=== PATIENT | male | born 1960 | race Caucasian/White ===

== ENCOUNTER 2018-12-09 08:17 | Day surgery (SDC) | payer BC | END 2018-12-09 10:35 | disposition home or self-care (01) | LOC: FASU-ENDO 08:17 ==

== ENCOUNTER 2020-09-06 07:53 | Day surgery (SDC) | payer BC ==
[2020-09-04 15:21] VITALS: BMI 34.4
[2020-09-06] MEDS ORDERED: LIDOCAINE HCL/PF 2% SDV 5ML VIAL ONE (08:28)
[2020-09-06] MEDS ORDERED: PROPOFOL 20 ML ONE ×3 (08:28)
[2020-09-06 09:18] VITALS: PULSE 66; TEMP 97.8
[2020-09-06 09:50] VITALS: BP 135/84
== END 2020-09-06 09:51 | disposition home or self-care (01) ==
LOC: FASU-ENDO 07:53
PROVIDERS: ATTEND Internal Medicine Gastroenterology
PROC: 0DBC8ZX Excision of Ileocecal Valve, Via Natural or Artificial Opening Endoscopic, Diagnostic (ICD-10-PCS; 2020-09-06)
PROC: 0DB78ZX Excision of Stomach, Pylorus, Via Natural or Artificial Opening Endoscopic, Diagnostic (ICD-10-PCS; 2020-09-06)
PROC: 0DBL8ZX Excision of Transverse Colon, Via Natural or Artificial Opening Endoscopic, Diagnostic (ICD-10-PCS; principal; 2020-09-06 08:30)
DX: Z12.11 Encounter for screening for malignant neoplasm of colon (principal); D12.3 Benign neoplasm of transverse colon; D12.0 Benign neoplasm of cecum; R10.12 Left upper quadrant pain; K44.9 Diaphragmatic hernia without obstruction or gangrene; Z98.0 Intestinal bypass and anastomosis status; Z98.84 Bariatric surgery status; Z86.010 Personal history of colon polyps